=== PATIENT | male | born 1980 ===

== ENCOUNTER 2020-03-04 12:18 | Emergency (ER) | payer SELFPAY ==
[2020-03-04] MEDS ORDERED: NEOMY 3.5 MG/BACIT 400 UNITS/POLY B 5000 UNITS/GM OINT PACKET TP ONE (12:31)
[2020-03-04] MEDS ORDERED: LIDOCAINE (1%) 10 MG/1 ML VIAL 20 ML MDV INFILTRATI ONE (12:31)
[2020-03-04] MEDS ORDERED: DIPHtheria,PERTUSSIS(ACELL),TETANUS VACCINE/PF 0.5 ML VIAL IM ONE (12:32)
--- NOTE | 2020-03-04 12:34 | Event Note ---
ED Screening Note ED Screening Note: deep lac per EMS bandage intact needs tdap This initial assessment/diagnostic orders/clinical plan/treatment(s) is/are subject to change based on patients health status, clinical progression and re- assessment by fellow clinical providers in the ED. Further treatment and workup at subsequent clinical providers discretion. Patient/guardian urged not to elope from the ED as their condition may be serious if not clinically assessed and managed. Initial orders include: Chaya to see
[2020-03-04 12:38] VITALS: BP 152/103
[2020-03-04] MEDS ORDERED: oxyCODONE /ACETAMINOPHEN 5-325MG TAB PO ONE (13:02)
--- NOTE | 2020-03-04 13:07 | Emergency Department Report ---
- General Chief Complaint: Laceration/Recheck/Suture Stated Complaint: LT INDEX FINGER LAC Time Seen by Provider: 03/04/20 12:31 Source: patient Mode of arrival: Ambulatory Limitations: No Limitations - History of Present Illness Initial Comments: Patient is a 39-year-old male presents emergency room with complaints of a laceration to the left index finger that occurred around 1 hour prior to arrival. Patient states that he was using a machine to cut meat. He states that he slides the meat forward and that it cuts the meat. He states that he accidentally cut his finger and has a deep laceration to the left index finger. He states initially there was a lot of bleeding but it has since improved since EMS wrapped the finger and gauze. He denies any numbness or weakness. He is still able to move the finger and hand. He is unsure of his last tetanus immunization. No past medical history. He denies any medication allergies. - Related Data Previous Rx's Medication Instructions Recorded Last Taken Type HYDROcodone/APAP 5-325 [[place] 1 each PO Q6HR PRN #12 tablet 03/04/20 Unknown Rx 5/325] Ibuprofen [Motrin 600 MG tab] 600 mg PO Q8H PRN #20 tablet 03/04/20 Unknown Rx cephALEXin [Keflex] 500 mg PO QID 7 Days #28 cap 03/04/20 Unknown Rx ED Review of Systems ROS: Stated complaint: LT INDEX FINGER LAC Other details as noted in HPI Comment: All other systems reviewed and negative ED Past Medical Hx - Past Medical History Previous Medical History?: No - Surgical History Past Surgical History?: No - Social History Smoking Status: Never Smoker Substance Use Type: None - Medications Home Medications: Home Medications Medication Instructions Recorded Confirmed Last Taken Type HYDROcodone/APAP 5-325 [[place] 1 each PO Q6HR PRN #12 tablet 03/04/20 Unknown Rx 5/325] Ibuprofen [Motrin 600 MG tab] 600 mg PO Q8H PRN #20 tablet 03/04/20 Unknown Rx cephALEXin [Keflex] 500 mg PO QID 7 Days #28 cap 03/04/20 Unknown Rx ED Physical Exam - General Limitations: No Limitations General appearance: alert, in no apparent distress - Head Head exam: Present: atraumatic, normocephalic - Eye Eye exam: Present: normal appearance - ENT ENT exam: Present: mucous membranes moist - Respiratory Respiratory exam: Absent: respiratory distress, accessory muscle use - Neurological Exam Neurological exam: Present: alert, oriented X3 - Psychiatric Psychiatric exam: Present: normal affect, normal mood - Skin Skin exam: Present: warm, dry, other (4 cm deep, irregularly shaped laceration present to the left index finger, no obvious foreign body, pt has FROM of the left index finger and can flex without difficulty, neurovascularly intact, brisk cap refill, there is a superficial 2 cm lac present to the dorsal surface of the left index finger) ED Course Vital Signs 03/04/20 12:27 Temperature 98.0 F Pulse Rate 70 Respiratory 20 Rate Blood Pressure 152/103 O2 Sat by Pulse 96 Oximetry - Laceration /Wound Repair Left Finger Wound Location: upper extremity (left index finger) Wound Length (cm): 4 Wound's Depth, Shape: irregular Wound Explored: clean Irrigated w/ Saline (ccs): 500 Betadine Prep?: Yes Anesthesia: 1% Lidocaine Volume Anesthetic (ccs): 8 Wound Debrided: extensive Wound Repaired With: sutures Suture Size/Type: 4:0, proline Number of Sutures: 10 Layer Closure?: No Sterile Dressing Applied?: Yes Progress: There are 2 lacerations present to the left index finger, one is 4 cm in length and very irregularly shaped, it is very deep, patient has full range of motion of the finger, he is neurovascularly intact, brisk cap refill, there is a another 2 cm laceration present to the left dorsal index finger, it is superficial, skin prepped with Betadine, digital block performed using 1% lidocaine without epinephrine, 8 cc used as anesthetic, aspirated to make sure not in the vessel, good anesthesia achieved, irrigated wounds with 500 cc of normal saline and use a syringe to create pressure to clean, scrubbed extensively with Betadine, Betadine prep, sterile drapes applied, sterile gloves worn, 4-0 Prolene used for skin closure, 10 sutures placed, patient tolerated well, no complications, bleeding controlled, sterile dressing and splint applied by nurse ED Medical Decision Making - Radiology Data Radiology results: report reviewed Ordering Physician: IVETT SAGE Date of Service: 03/04/20 Procedure(s): XR hand 3+V LT Accession Number(s): [id number] cc: IVETT SAGE Fluoro Time In Minutes: LEFT HAND 3 VIEWS INDICATION / CLINICAL INFORMATION: deep laceration left index finger COMPARISON: None available. FINDINGS: BONES and JOINT(S): There is an acute mildly displaced oblique fracture through the distal phalanx of the index finger. No dislocation. No significant arthritis. SOFT TISSUES: A laceration is noted along the tip of the index finger with associated edema. Questionable punctate radiopaque foreign bodies are noted laterally along the finger at the level of the distal phalanx. ADDITIONAL FINDINGS: None. IMPRESSION: Open left index finger fracture with questionable punctate radiopaque foreign bodies. Signer Name: Salbador Stevenson MD Signed: 03/04/2020 1:27 PM Workstation Name: [id number] Transcribed By: MN Dictated By: Salbador Stevenson MD Electronically Authenticated By: Salbador Stevenson MD Signed Date/Time: 03/04/201326 DD/ 23 TD/TT: - Medical Decision Making Patient is a 39-year-old male presents emergency room with complaints of a laceration to the left index finger that occurred around 1 hour prior to arrival. Patient states that he was using a machine to cut meat. He states that he slides the meat forward and that it cuts the meat. He states that he accidentally cut his finger and has a deep laceration to the left index finger. He states initially there was a lot of bleeding but it has since improved since EMS wrapped the finger and gauze. He denies any numbness or weakness. He is still able to move the finger and hand. He is unsure of his last tetanus immunization. No past medical history. He denies any medication allergies. vss. on exam: 4 cm deep, irregularly shaped laceration present to the left index finger, no obvious foreign body, pt has FROM of the left index finger and can flex without difficulty, neurovascularly intact, brisk cap refill, there is a superficial 2 cm lac present to the dorsal surface of the left index finger. XR left hand: Open left index finger fracture with questionable punctate radiopaque foreign bodies. Wound irrigated with saline and extensively scrubbed with Betadine and repaired per procedure note. Patient placed in dressing and splint by nurse and remained neurovascularly intact. Patient given Tdap and IV Ancef while in the emergency department. Discussed in detail with patient the importance of following up with an orthopedic doctor and the risks associated with not doing so, patient verbalized understanding. Patient given prescription for Keflex, ibuprofen, [place]. Advised patient Please take medication as prescribed. Please do not remove splint. Follow-up with orthopedic doctor in the next 2 days. It is very important that you follow-up with orthopedic doctor to prevent infection, loss of limb, loss of use of limb. Do not drive or operate heavy machinery while taking pain medication. Sutures will need to be removed in 10 to 14 days. Return to emergency room for any new or worsening symptoms. Critical care attestation.: If time is entered above; I have spent that time in minutes in the direct care of this critically ill patient, excluding procedure time. ED Disposition Clinical Impression: Open fracture of phalanx of index finger Qualifiers: Encounter type: initial encounter Phalanx: distal Fracture alignment: displaced Laterality: left Qualified Code(s): S62.631B - Displaced fracture of distal phalanx of left index finger, initial encounter for open fracture Disposition: TO HOME OR SELFCARE Is pt being admited?: No Does the pt Need Aspirin: No Condition: Stable Instructions: Finger Fracture, Adult Additional Instructions: Please take medication as prescribed. Please do not remove splint. Follow-up with orthopedic doctor in the next 2 days. It is very important that you follow-up with orthopedic doctor to prevent infection, loss of limb, loss of use of limb. Do not drive or operate heavy machinery while taking pain medication. Sutures will need to be removed in 10 to 14 days. Return to emergency room for any new or worsening symptoms. Prescriptions: cephALEXin [Keflex] 500 mg PO QID 7 Days #28 cap Ibuprofen [Motrin 600 MG tab] 600 mg PO Q8H PRN #20 tablet PRN Reason: Pain, Moderate (4-6) HYDROcodone/APAP 5-325 [[place] 5/325] 1 each PO Q6HR PRN #12 tablet PRN Reason: Pain , Severe (7-10) Referrals: GREGORIA PLATT MD [Staff Physician] - 2-3 Days Time of Disposition: 15:08 Print Language: YORUBA
[2020-03-04] MEDS ORDERED: SODIUM CHLORIDE 0.9% IRR 500 ML BOTTLE IR ONE (13:16)
--- NOTE | 2020-03-04 13:31 | XRay Report ---
LEFT HAND 3 VIEWS INDICATION / CLINICAL INFORMATION: deep laceration left index finger COMPARISON: None available. FINDINGS: BONES and JOINT(S): There is an acute mildly displaced oblique fracture through the distal phalanx of the index finger. No dislocation. No significant arthritis. SOFT TISSUES: A laceration is noted along the tip of the index finger with associated edema. Question able punctate radiopaque foreign bodies are noted laterally along the finger at the level of the dist al phalanx. ADDITIONAL FINDINGS: None. IMPRESSION: Open left index finger fracture with questionable punctate radiopaque foreign bodies. Signer Name: Salbador Stevenson MD Signed: 03/04/2020 1:27 PM Workstation Name: [id number]
== END 2020-03-04 16:14 | disposition home or self-care (01) ==
LOC: ED 12:18
DX: S62.631B Displaced fracture of distal phalanx of left index finger, initial encounter for open fracture (principal); Z79.899 Other long term (current) drug therapy; W26.0XXA Contact with knife, initial encounter; Y93.89 Activity, other specified; Y92.89 Other specified places as the place of occurrence of the external cause; Y99.8 Other external cause status
CPT/HCPCS: 12032; 73130; 90715; 96365; 99283; A6250; J0690

== ENCOUNTER 2020-03-12 11:18 | Emergency (ER) | payer SELFPAY ==
[2020-03-12 11:25] VITALS: BP 129/90
--- NOTE | 2020-03-12 11:40 | Emergency Department Report ---
- General Chief Complaint: Laceration/Recheck/Suture Stated Complaint: WOUND CHECK Source: patient Mode of arrival: Ambulatory Limitations: No Limitations - History of Present Illness Initial Comments: 39-year-old male presents to the emergency room for wound check. Patient states that he was here on 04 March had sutures placed. It was noted the patient had a open finger fracture. Patient presents with the original dressing that was placed on his finger from March 04, 2020. Patient has not followed up with the orthopedic provider as instructed. Patient did complete antibiotics as prescribed. Patient is concerned that his finger is infected. Patient denies any fever chills or discharge from wound. Onset/Timin -: days(s) Extremity Location: Left: Hand (Index finger) Patient Tetanus UTD: Yes Associated Symptoms: other (Concern for infection) - Related Data Previous Rx's Medication Instructions Recorded Last Taken Type HYDROcodone/APAP 5-325 [[place] 1 each PO Q6HR PRN #12 tablet 03/04/20 Unknown Rx 5/325] Ibuprofen [Motrin 600 MG tab] 600 mg PO Q8H PRN #20 tablet 03/04/20 Unknown Rx cephALEXin [Keflex] 500 mg PO QID 7 Days #28 cap 03/04/20 Unknown Rx Allergies Allergy/AdvReac Type Severity Reaction Status Date / Time No Known Allergies Allergy Unverified 03/12/20 11:21 ED Review of Systems ROS: Stated complaint: WOUND CHECK Other details as noted in HPI Comment: All other systems reviewed and negative ED Past Medical Hx - Past Medical History Previous Medical History?: No - Surgical History Past Surgical History?: No - Social History Smoking Status: Never Smoker Substance Use Type: None - Medications Home Medications: Home Medications Medication Instructions Recorded Confirmed Last Taken Type HYDROcodone/APAP 5-325 [[place] 1 each PO Q6HR PRN #12 tablet 03/04/20 Unknown Rx 5/325] Ibuprofen [Motrin 600 MG tab] 600 mg PO Q8H PRN #20 tablet 03/04/20 Unknown Rx cephALEXin [Keflex] 500 mg PO QID 7 Days #28 cap 03/04/20 Unknown Rx ED Physical Exam - General Limitations: No Limitations General appearance: alert, in no apparent distress - Head Head exam: Present: atraumatic, normocephalic - Eye Eye exam: Present: normal appearance - ENT ENT exam: Present: mucous membranes moist - Neck Neck exam: Present: normal inspection, full ROM - Back Exam Back exam: Present: normal inspection - Neurological Exam Neurological exam: Present: alert, oriented X3, normal gait - Psychiatric Psychiatric exam: Present: normal affect, normal mood - Skin Skin exam: Present: other (Left index finger sutures are in place 9 and his sent nonerythematous nonedematous bandage is old and worn. No active bleeding appreciated.) ED Course Vital Signs 03/12/20 11:23 Temperature 97.8 F Pulse Rate 72 Respiratory 16 Rate Blood Pressure 129/90 O2 Sat by Pulse 95 Oximetry ED Medical Decision Making - Medical Decision Making 39-year-old male presents to the emergency room for wound check. Patient states that he was here on 04 March had sutures placed. It was noted the patient had a open finger fracture. Patient presents with the original dressing that was placed on his finger from March 04, 2020. Patient has not followed up with the orthopedic provider as instructed. Patient did complete antibiotics as prescribed. Patient is concerned that his finger is infected. Patient denies any fever chills or discharge from wound. Wound cleaned by this provider Vaseline dressing placed with a 2 x 2 and wrapped with clear tape. Patient is instructed to return in 4 to 5 days to have sutures removed. Patient is instructed to follow-up with orthopedic provider. Patient can take Tylenol or ibuprofen for pain. Instructed patient to do daily dressing changes. Critical care attestation.: If time is entered above; I have spent that time in minutes in the direct care of this critically ill patient, excluding procedure time. ED Disposition Clinical Impression: Encounter for wound re-check Is pt being admited?: No Does the pt Need Aspirin: No Condition: Stable Additional Instructions: Please do dressing changes daily. Follow-up with the orthopedic provider Dr. Lees. Ibuprofen or Tylenol for pain. Referrals: GREGORIA LEES MD [Staff Physician] - 3-5 Days Forms: Work/School Release Form(ED)
== END 2020-03-12 13:22 | disposition home or self-care (01) ==
LOC: ED 11:18
DX: Z00.8 Encounter for other general examination (principal); Z79.899 Other long term (current) drug therapy
CPT/HCPCS: 99282

== ENCOUNTER 2020-03-17 10:59 | Emergency (ER) | payer SELFPAY ==
--- NOTE | 2020-03-17 11:10 | Emergency Department Report ---
Chief Complaint: Laceration/Recheck/Suture Stated Complaint: SUTURE REMOVAL Time Seen by Provider: 03/17/20 11:07 - HPI History of Present Illness: pt is a 39 yo male who presents to the ED for a wound check. he states he wants to know if his sutures are ready to be removed. he denies any increased pain, drainage, fever, increased swelling. he states he has not yet followed up with an orthopedic doctor. he reports he has an appointment on 03/18/[address] Lees. he was evaluated in the ED 03/04/2020 secondary to an open fracture and had a wound repair at that time and was given IV abx and oral abx. he states he completed his abx. he was advised to return in 10-14 days for possible suture removal. it has only been 8 days. VSS on exam: no erythema, no drainage, no increased warmth, neurovasculalry intact, brisk cap refill, sutures are intact, skin still appears to be in the process of healing and concern for wound dehiscence if sutures were taken out at this time sutures are not ready to be removed, skin is still in the process of healing, no wound dehiscence at this time, sutures are intact, no signs of infection at this time advised patient he would need to wait another week for reevaluation of the wound to see if sutures can be removed at that time pt is not currently wearing his finger splint, advised pt to put it back on SHIREEN as he had an open fracture and could cause further damage, he verbalized understanding area was redressed by tech advised pt please keep appointment with the orthopedic for tomorrow 03/18/2020. it is very important you follow up. please keep area clean, dry, covered. wash with antibacterial soap and water twice a day. use triple antibiotic ointment or neosporin. please wear finger splint. return to the emergency room for any new or worsening symptoms sutures are not ready to be removed today, please wait another week 03/24/2020 discussed very strict return precautions with pt medical screening examination performed and there is no threat to life or limb at this time MSE screening note: Focused history and physical exam performed. Due to findings the following was ordered: ED Disposition for MSE Clinical Impression: Visit for wound check Disposition: MED SCREENING EXAM-LEFT Is pt being admited?: No Does the pt Need Aspirin: No Condition: Stable Instructions: Wound Care, Adult Additional Instructions: please keep appointment with the orthopedic for tomorrow 03/18/2020. it is very important you follow up. please keep area clean, dry, covered. wash with antibacterial soap and water twice a day. use triple antibiotic ointment or neosporin. please wear finger splint. return to the emergency room for any new or worsening symptoms sutures are not ready to be removed today, please wait another week 03/24/2020 Referrals: your, orthopedic [Other] - SHIREEN Time of Disposition: 11:08 Print Language: ICELANDIC
[2020-03-17 11:12] VITALS: BP 150/90
== END 2020-03-17 11:16 | disposition left against medical advice (07) ==
LOC: ED 10:59
DX: S62.631D Displaced fracture of distal phalanx of left index finger, subsequent encounter for fracture with routine healing (principal); Z53.21 Procedure and treatment not carried out due to patient leaving prior to being seen by health care provider; X58.XXXD Exposure to other specified factors, subsequent encounter